=== PATIENT | male | born 1955 | race Caucasian/White ===

== ENCOUNTER 2017-11-27 18:16 | Inpatient (IN) | payer MEDICARE, BC, OTHER ==
[~2017-11-27] VITALS: Ht 182.9 cm; Wt 117.9 kg
[2017-11-27 21:35] LABS: *AMPHETAMINE, URINE NEGATIVE (NEGATIVE); *BARBITURATE, URINE NEGATIVE (NEGATIVE); *CANNABINOID, URINE POSITIVE (NEGATIVE); *COCCAINE, URINE NEGATIVE (NEGATIVE); *OPIATE, URINE NEGATIVE (NEGATIVE); *PHENCYCLIDINE SCREEN,URINE NEGATIVE (NEGATIVE)
[2017-11-27] MEDS ORDERED: MAG HYDROX/AL HYDROX/SIMETH 30 ML LIQUID UDC PO PRN (21:45)
[2017-11-27] MEDS ORDERED: ACETAMINOPHEN 325 MG TABLET PO PRN (21:45)
[2017-11-27] MEDS ORDERED: ONDANSETRON ODT 4 MG TAB.RAPDIS SL PRN (21:45)
[2017-11-27] MEDS ORDERED: CLONIDINE HCL 0.1 MG TABLET PO PRN (21:45)
[2017-11-27] MEDS ORDERED: MAGNESIUM HYDROXIDE 30 ML LIQUID UDC PO PRN (21:45)
[2017-11-27] MEDS ORDERED: diphenhydrAMINE 50 MG CAPSULE PO PRN (21:45)
[2017-11-27] MEDS ORDERED: DICYCLOMINE HCL 20 MG TABLET PO PRN (21:45)
[2017-11-27] MEDS ORDERED: ONDANSETRON 4 MG/2 ML VIAL IM PRN (21:45)
[2017-11-27] MEDS ORDERED: IBUPROFEN 400 MG TABLET PO PRN (21:45)
[2017-11-27] MEDS ORDERED: LOPERAMIDE HCL 2 MG CAPSULE PO PRN ×2 (21:45)
[2017-11-27] MEDS ORDERED: THIAMINE HCL 200 MG/2 ML VIAL IM ONE (21:45)
[2017-11-27] MEDS ORDERED: LORAZEPAM 1 MG TABLET PO PRN ×2 (21:45)
[2017-11-27] MEDS ORDERED: LORAZEPAM 2 MG/1 ML VIAL IM PRN (21:45)
[2017-11-27] MEDS ORDERED: VALS1TAB77 PO (22:49)
[2017-11-27] MEDS ORDERED: METO50TA16 PO (22:49)
[2017-11-27] MEDS ORDERED: LOPE2CAP40 GT (22:49)
[2017-11-27] MEDS ORDERED: PANT40TA4 PO (22:49)
[2017-11-27] MEDS ORDERED: QUET100T PO (22:49)
[2017-11-27] MEDS ORDERED: LORAZEPAM 1 MG TABLET PO SCH (22:50)
[2017-11-27] MEDS ORDERED: THIAMINE HCL 200 MG/2 ML VIAL ONE (23:19)
[2017-11-27] MEDS ORDERED: LORAZEPAM 1 MG TABLET ONE (23:20)
[2017-11-28] VITALS: BP 100/70
[2017-11-28 00:40] LABS: BASOPHILS % (AUTO) 0.3 % (0.0-2.0); EOSINOPHILS # (AUTO) 0.1 K/uL (0.0-0.7); EOSINOPHILS % (AUTO) 0.8 % (0.0-7.0); HEMATOCRIT 43.4 % (36.7-47.1); HEMOGLOBIN 15.2 g/dL (12.5-16.3); LYMPHOCYTES # (AUTO) 2.8 K/uL (20.0-40.0); LYMPHOCYTES % (AUTO) 20.9 % (20.5-51.5); MEAN CORPUSCULAR HEMOGLOBIN 32.1 uug (23.8-33.4); MEAN CORPUSCULAR HGB CONC 35 g/dL (32.5-36.3); MEAN CORPUSCULAR VOLUME 91.7 fL (73.0-96.2); MONOCYTES # (AUTO) 1.3 K/uL (2.0-10.0); MONOCYTES % (AUTO) 9.4 % (0.0-11.0); NEUTROPHILS # (AUTO) 9.3 K/uL (1.8-8.9); NEUTROPHILS % (AUTO) 68.6 % (38.5-71.5); PLATELET COUNT (AUTO) 170 K/uL (152-348); RED BLOOD CELL COUNT(AUTO) 4.73 MIL/uL (4.06-5.63); WHITE BLOOD COUNT (AUTO) 13.5 K/uL (3.6-10.2)
[2017-11-28 01:17] LABS: ALANINE AMINOTRANSFERASE 62 U/L (16-63); ALKALINE PHOSPHATASE 75 U/L (50-136); AMYLASE 68 U/L (25-115); ASPARTATE AMINOTRANSFERASE 45 U/L (15-37); BILIRUBIN,TOTAL 0.4 mg/dL (0.2-1.0); CARBON DIOXIDE 32 mmol/L (21-32); CHLORIDE 96 mmol/L (98-107); CREATININE 3.4 mg/dL (0.6-1.3); GLUCOSE 130 mg/dL (74-106); MAGNESIUM 1.5 mg/dL (1.8-2.4); UREA NITROGEN, BLOOD 26 mg/dL (7-18)
[2017-11-28 01:31] LABS: ETHANOL < 3 MG/DL (0-0)
[2017-11-28 04:00] VITALS: BP 98/67
[2017-11-28 08:10] VITALS: BP 131/70
[2017-11-28] MEDS: FOLIC ACID 1 MG TABLET PO SCH (08:22)
[2017-11-28] MEDS: MULTIVITAMINS,THERAPEUTIC TABLET PO SCH (08:22)
[2017-11-28] MEDS: THIAMINE HCL 100 MG TABLET PO SCH (08:22)
[2017-11-28] MEDS: LORAZEPAM 1 MG TABLET PO SCH ×3 (08:22→21:00)
[2017-11-28] MEDS ORDERED: TUBERCULIN,PURIF.PROT.DERIV. 5 TU/0.1 ML TEST ID ONE (09:00)
[2017-11-28] MEDS ORDERED: hydrALAZINE HCL 50 MG TABLET PO PRN (09:45)
[2017-11-28] MEDS ORDERED: IV NS 1000 ML 1,000 ML IV ONE (09:45)
[2017-11-28] MEDS ORDERED: POTASSIUM CHLORIDE 20 MEQ TAB.PRT.SR PO ONE ×2 (09:45→20:00)
[2017-11-28] MEDS ORDERED: MAGNESIUM OXIDE 400 MG TABLET PO ONE ×2 (09:45→20:00)
[2017-11-28 10:19] LABS: CREATININE 3.4 mg/dL (0.6-1.3); MAGNESIUM 1.5 mg/dL (1.8-2.4)
[2017-11-28] MEDS: QUETIAPINE FUMARATE 100 MG TABLET PO SCH ×2 (11:05→17:00)
[2017-11-28] MEDS ORDERED: BUPRENORPHINE HCL 2 MG TAB.SUBL SL PRN (11:30)
[2017-11-28] MEDS ORDERED: METHOCARBAMOL 750 MG TABLET PO PRN (11:30)
[2017-11-28] MEDS ORDERED: NICOTINE POLACRILEX 4 MG GUM-PK OF TEN BC PRN (11:45)
[2017-11-28 12:20] VITALS: BP 153/93
[2017-11-28] MEDS: BUPRENORPHINE HCL 2 MG TAB.SUBL SL SCH ×3 (12:23→21:16)
[2017-11-28] MEDS: DULOXETINE 20 MG CAPSULE.DR PO SCH (12:23)
[2017-11-28] MEDS ORDERED: IV NS 1000 ML 1,000 ML IV PRN (13:00)
[2017-11-28 17:25] VITALS: BP 140/82
[2017-11-28 19:46] LABS: CREATININE 2.3 mg/dL (0.6-1.3); MAGNESIUM 1.6 mg/dL (1.8-2.4); POTASSIUM 3.2 mmol/L (3.5-5.1)
[2017-11-28 20:00] VITALS: BP 108/82
[2017-11-28] MEDS: GABAPENTIN 300 MG CAPSULE PO SCH (21:16)
[2017-11-28] MEDS: METOPROLOL TARTRATE 50 MG PO SCH (21:17)
[2017-11-29] VITALS: BP 117/73
[2017-11-29 04:00] VITALS: BP 105/63
[2017-11-29 08:00] VITALS: BP 118/71
[2017-11-29] MEDS: QUETIAPINE FUMARATE 100 MG TABLET PO SCH ×3 (09:00→17:00)
[2017-11-29] MEDS ORDERED: BUPRENORPHINE HCL 2 MG TAB.SUBL SL SCH ×2 (09:00→15:00)
[2017-11-29] MEDS: PANTOPRAZOLE 40MG PO SCH (09:10)
[2017-11-29] MEDS: METOPROLOL TARTRATE 50 MG PO SCH ×2 (09:10→20:43)
[2017-11-29] MEDS: MULTIVITAMINS,THERAPEUTIC TABLET PO SCH (09:10)
[2017-11-29] MEDS: DULOXETINE 20 MG CAPSULE.DR PO SCH (09:10)
[2017-11-29] MEDS: GABAPENTIN 300 MG CAPSULE PO SCH ×3 (09:11→20:42)
[2017-11-29] MEDS: THIAMINE HCL 100 MG TABLET PO SCH (09:11)
[2017-11-29] MEDS: LORAZEPAM 1 MG TABLET PO SCH ×5 (09:11→21:52)
[2017-11-29] MEDS: FOLIC ACID 1 MG TABLET PO SCH (09:11)
[2017-11-29 09:23] LABS: BASOPHILS # (AUTO) 0.1 K/uL (0.0-8.0); BASOPHILS % (AUTO) 0.5 % (0.0-2.0); EOSINOPHILS # (AUTO) 0.5 K/uL (0.0-0.7); EOSINOPHILS % (AUTO) 5.1 % (0.0-7.0); HEMATOCRIT 42.3 % (36.7-47.1); HEMOGLOBIN 14.6 g/dL (12.5-16.3); LYMPHOCYTES % (AUTO) 21.6 % (20.5-51.5); MEAN CORPUSCULAR HEMOGLOBIN 32.1 uug (23.8-33.4); MEAN CORPUSCULAR HGB CONC 34 g/dL (32.5-36.3); MEAN CORPUSCULAR VOLUME 93.4 fL (73.0-96.2); MONOCYTES % (AUTO) 10.4 % (0.0-11.0); NEUTROPHILS # (AUTO) 5.9 K/uL (1.8-8.9); NEUTROPHILS % (AUTO) 62.4 % (38.5-71.5); PLATELET COUNT (AUTO) 160 K/uL (152-348); RED BLOOD CELL COUNT(AUTO) 4.53 MIL/uL (4.06-5.63); WHITE BLOOD COUNT (AUTO) 9.4 K/uL (3.6-10.2)
[2017-11-29 10:01] LABS: BILIRUBIN,DIRECT 0.1 mg/dL (0.0-0.2); BILIRUBIN,TOTAL 0.4 mg/dL (0.2-1.0); CREATININE 1.6 mg/dL (0.6-1.3); MAGNESIUM 1.7 mg/dL (1.8-2.4); PHOSPHOROUS 2.6 mg/dL (2.5-4.9); POTASSIUM 3.9 mmol/L (3.5-5.1); TOTAL PROTEIN, SERUM 7.5 g/dL (6.4-8.2)
[2017-11-29 12:00] VITALS: BP 110/69
[2017-11-29] MEDS ORDERED: MAGNESIUM OXIDE 400 MG TABLET PO ONE (12:00)
[2017-11-29] MEDS: BUPRENORPHINE HCL 2 MG TAB.SUBL SL SCH ×4 (12:31→20:43)
[2017-11-29 13:07] LABS: HEPATITIS B SURFACE AG Negative (Negative)
[2017-11-29 16:39] VITALS: BP 106/61
[2017-11-29 20:00] VITALS: BP 102/60
[2017-11-30] VITALS (7 sets, daily range): BP systolic 106–119; BP diastolic 53–78
[2017-11-30] MEDS ORDERED: QUETIAPINE FUMARATE 25 MG TABLET PO SCH (09:00)
[2017-11-30 09:13] LABS: MAGNESIUM 1.8 mg/dL (1.8-2.4); POTASSIUM 4.1 mmol/L (3.5-5.1)
[2017-11-30] MEDS: LORAZEPAM 1 MG TABLET PO SCH ×3 (09:29→20:44)
[2017-11-30] MEDS: FOLIC ACID 1 MG TABLET PO SCH (09:29)
[2017-11-30] MEDS: MIRALAX 17 GM POWD.PACK PO PRN (09:30)
[2017-11-30] MEDS: BUPRENORPHINE HCL 2 MG TAB.SUBL SL SCH ×3 (09:30→20:45)
[2017-11-30] MEDS: THIAMINE HCL 100 MG TABLET PO SCH (09:31)
[2017-11-30] MEDS: GABAPENTIN 300 MG CAPSULE PO SCH ×3 (09:31→20:44)
[2017-11-30] MEDS: MULTIVITAMINS,THERAPEUTIC TABLET PO SCH (09:31)
[2017-11-30] MEDS: DULOXETINE 20 MG CAPSULE.DR PO SCH (09:31)
[2017-11-30] MEDS: PANTOPRAZOLE 40MG PO SCH (09:35)
[2017-11-30] MEDS: METOPROLOL TARTRATE 50 MG PO SCH ×2 (09:35→20:45)
[2017-11-30] MEDS ORDERED: MAGNESIUM OXIDE 400 MG TABLET PO ONE (10:00)
[2017-11-30] MEDS ORDERED: NEUTRA PHOS PACKET PO ONE (10:00)
[2017-11-30] MEDS ORDERED: IBUPROFEN 600 MG TABLET PO PRN (11:15)
[2017-11-30] MEDS: BACLOFEN 10 MG TABLET PO SCH ×2 (15:00→20:44)
[2017-11-30] MEDS: NICOTINE 14 MG/24HR PATCH TD PRN (20:48)
[2017-12-01] VITALS: BP 106/60
[2017-12-01 04:00] VITALS: BP 110/62
[2017-12-01] MEDS: NICOTINE 14 MG/24HR PATCH TD PRN (07:03)
[2017-12-01 08:00] VITALS: BP 118/79
[2017-12-01 09:13] LABS: MAGNESIUM 1.7 mg/dL (1.8-2.4); PHOSPHOROUS 2.6 mg/dL (2.5-4.9); POTASSIUM 4.5 mmol/L (3.5-5.1)
[2017-12-01] MEDS: THIAMINE HCL 100 MG TABLET PO SCH (09:23)
[2017-12-01] MEDS: MULTIVITAMINS,THERAPEUTIC TABLET PO SCH (09:23)
[2017-12-01] MEDS: BACLOFEN 10 MG TABLET PO SCH (09:24)
[2017-12-01] MEDS: FOLIC ACID 1 MG TABLET PO SCH (09:24)
[2017-12-01] MEDS: LORAZEPAM 1 MG TABLET PO SCH ×2 (09:24→20:53)
[2017-12-01] MEDS: MIRALAX 17 GM POWD.PACK PO PRN (09:24)
[2017-12-01] MEDS: DULOXETINE 20 MG CAPSULE.DR PO SCH (09:24)
[2017-12-01] MEDS: GABAPENTIN 300 MG CAPSULE PO SCH ×3 (09:24→20:53)
[2017-12-01] MEDS: BUPRENORPHINE HCL 2 MG TAB.SUBL SL SCH ×2 (09:25→20:54)
[2017-12-01] MEDS: METOPROLOL TARTRATE 50 MG PO SCH ×2 (09:30→20:53)
[2017-12-01] MEDS: PANTOPRAZOLE 40MG PO SCH (09:30)
[2017-12-01 12:00] VITALS: BP 127/69
[2017-12-01] MEDS: LIDOCAINE 5% PATCH TD SCH ×2 (12:11→13:14)
[2017-12-01] MEDS ORDERED: MAGNESIUM OXIDE 400 MG TABLET PO ONE (13:00)
[2017-12-01] MEDS: BACLOFEN 20 MG TABLET PO SCH ×2 (14:54→20:53)
[2017-12-01 16:00] VITALS: BP 122/82
[2017-12-01] MEDS ORDERED: PNEUMOCOCCAL 23-VAL P-SAC VAC 0.5 ML VIAL IM ONE (17:00)
[2017-12-01] MEDS ORDERED: INFLUENZA VACCINE 2017-2018 0.5 ML DISP.SYRIN IM ONE (17:00)
[2017-12-01 20:00] VITALS: BP 126/77
[2017-12-02] VITALS: BP 111/57
[2017-12-02 04:13] VITALS: BP 120/69
[2017-12-02 08:00] VITALS: BP 130/79
[2017-12-02] MEDS: BACLOFEN 20 MG TABLET PO SCH ×3 (08:26→21:20)
[2017-12-02] MEDS: THIAMINE HCL 100 MG TABLET PO SCH (08:26)
[2017-12-02] MEDS: GABAPENTIN 300 MG CAPSULE PO SCH ×3 (08:26→21:20)
[2017-12-02] MEDS: MULTIVITAMINS,THERAPEUTIC TABLET PO SCH (08:26)
[2017-12-02] MEDS: FOLIC ACID 1 MG TABLET PO SCH (08:26)
[2017-12-02] MEDS: DULOXETINE 20 MG CAPSULE.DR PO SCH (08:26)
[2017-12-02] MEDS: METOPROLOL TARTRATE 50 MG PO SCH ×2 (08:31→21:20)
[2017-12-02] MEDS: PANTOPRAZOLE 40MG PO SCH (08:31)
[2017-12-02] MEDS ORDERED: BUPRENORPHINE HCL 2 MG TAB.SUBL SL SCH (09:00)
[2017-12-02] MEDS ORDERED: LORAZEPAM 1 MG TABLET PO SCH (09:00)
[2017-12-02 12:00] VITALS: BP 117/67
[2017-12-02 16:00] VITALS: BP 110/62
[2017-12-02] MEDS ORDERED: MAGNESIUM CITRATE 296 ML BOTTLE PO ONE (19:30)
[2017-12-02 20:00] VITALS: BP 127/85
[2017-12-02] MEDS ORDERED: DULO20CA PO (21:13)
[2017-12-02] MEDS ORDERED: GABA-534 PO (21:13)
[2017-12-02] MEDS ORDERED: DICY20TA28 PO (21:13)
[2017-12-02] MEDS ORDERED: IBUP-1955 PO (21:13)
[2017-12-02] MEDS ORDERED: LIDO30AD10 TD (21:13)
[2017-12-02] MEDS ORDERED: NICO-671 TD (21:13)
[2017-12-02] MEDS ORDERED: DIPH50CA37 PO (21:13)
[2017-12-02] MEDS ORDERED: BACL20TA PO (21:13)
[2017-12-03] VITALS: BP 138/72
[2017-12-03] MEDS ORDERED: BISACODYL 10 MG SUPP.RECT RC ONE ×2 (00:15→00:21)
[2017-12-03 04:00] VITALS: BP 127/55
[2017-12-03 08:00] VITALS: BP 126/68
[2017-12-03] MEDS: THIAMINE HCL 100 MG TABLET PO SCH (09:30)
[2017-12-03] MEDS: BACLOFEN 20 MG TABLET PO SCH ×2 (09:30→15:00)
[2017-12-03] MEDS: FOLIC ACID 1 MG TABLET PO SCH (09:30)
[2017-12-03] MEDS: GABAPENTIN 300 MG CAPSULE PO SCH ×2 (09:30→15:00)
[2017-12-03] MEDS: MULTIVITAMINS,THERAPEUTIC TABLET PO SCH (09:30)
[2017-12-03] MEDS: LIDOCAINE 5% PATCH TD SCH (09:30)
[2017-12-03] MEDS: METOPROLOL TARTRATE 50 MG PO SCH (09:31)
[2017-12-03] MEDS: PANTOPRAZOLE 40MG PO SCH (09:31)
[2017-12-03] MEDS: DULOXETINE 20 MG CAPSULE.DR PO SCH (09:32)
[2017-12-03 12:00] VITALS: BP 128/66
== END 2017-12-03 14:58 | DRG 895 ==
LOC: SRC 21:13
PROVIDERS: ADMIT Internal Medicine; ATTEND Internal Medicine
PROC: HZ2ZZZZ Detoxification Services for Substance Abuse Treatment (ICD-10-PCS; principal; 2017-11-27)
PROC: HZ41ZZZ Group Counseling for Substance Abuse Treatment, Behavioral (ICD-10-PCS; 2017-11-29)
PROC: HZ31ZZZ Individual Counseling for Substance Abuse Treatment, Behavioral (ICD-10-PCS; 2017-11-29)
DX: F10.230 Alcohol dependence with withdrawal, uncomplicated (principal); E87.3 Alkalosis; N17.9 Acute kidney failure, unspecified; K70.10 Alcoholic hepatitis without ascites; G47.36 Sleep related hypoventilation in conditions classified elsewhere; F31.4 Bipolar disorder, current episode depressed, severe, without psychotic features; E83.42 Hypomagnesemia; E83.39 Other disorders of phosphorus metabolism; E87.6 Hypokalemia; F11.23 Opioid dependence with withdrawal; Y90.0 Blood alcohol level of less than 20 mg/100 ml; G89.28 Other chronic postprocedural pain; M54.5 Low back pain; Z81.1 Family history of alcohol abuse and dependence; Z83.3 Family history of diabetes mellitus; Z82.49 Family history of ischemic heart disease and other diseases of the circulatory system; Z82.0 Family history of epilepsy and other diseases of the nervous system; N40.0 Benign prostatic hyperplasia without lower urinary tract symptoms; F41.9 Anxiety disorder, unspecified; K27.7 Chronic peptic ulcer, site unspecified, without hemorrhage or perforation; Z91.89 Other specified personal risk factors, not elsewhere classified; F12.10 Cannabis abuse, uncomplicated; F17.210 Nicotine dependence, cigarettes, uncomplicated; E86.0 Dehydration; I10 Essential (primary) hypertension; D72.829 Elevated white blood cell count, unspecified; R73.01 Impaired fasting glucose; Z79.899 Other long term (current) drug therapy; G47.33 Obstructive sleep apnea (adult) (pediatric); E66.9 Obesity, unspecified; Z68.35 Body mass index [BMI] 35.0-35.9, adult; G47.00 Insomnia, unspecified
CPT/HCPCS: 36415; 70030-TC; 76770; 80307; 80349; 83735; 84100; 85025; 86580; 86592; 86705; 86803; 87340; 87806; 90686; 90732; 93307; A4663; G0480; J3411; J7030; Q0163